=== PATIENT | male | born 2000 | race Caucasian/White ===

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

== ENCOUNTER 2018-11-03 06:57 | Day surgery (SDC) | payer OTHER, SELFPAY ==
[2018-11-03 07:16] VITALS: BP 134/77; PULSE 95; RESP 18; TEMP 36.9; O2SAT 95; BMI 18.3
--- NOTE | 2018-11-03 08:35 | SEP_PTH ---
PATIENT: GENOVEVA YBARRA LOC[place] [facility] [place][id number] AGE/SX: 18/M ROOM: RE11/03/[address]: Per Frias MD : 2000 BED: DIS: 11/03/2018 SPEC #: [id number] RECD: 11/03/18 12:56 STATUS: ANGEL DELGADO #: [id number] FERNANDO: 11/03/18 08:[address]: Per Frias DEPT: SURGICAL PATHOLOGY RECD BY: Sarthak Whitley ENTERED: 11/03/18 13:43 SP TYPE: SEPTUM OTHR DR: Dr. Eric Kurtz MD Tissues: A - Nasal septum, NOS B - Adenoid, NOS Procedures: Decalcification bone/plaque Surgery Specimen Level III HEADER OPERATION: Septoplasty, turbinate cautery, adenoidectomy PRE-OP DIAGNOSIS: Nasal congestion; deflection or deviation of nasal septum, hypertrophy of nasal turbinates TISSUE SUBMITTED: A - Nasal septal bone and cartilage, B - Adenoids MICROSCOPIC DIAGNOSIS A. Nasal septum bone and cartilage: Fragments of cartilage and bone, clinically deviation of nasal septum. B. Adenoids: Reactive lymphoid hyperplasia. KIRSTY:joe 11/09/18 MICROSCOPIC DESCRIPTION Slides are reviewed. GROSS DESCRIPTION A - Received in fixative is one container labeled with the patient's name and designated nasal septal bone cartilage. The specimen consists of multiple fragments of cartilage and bone that in aggregate measure 3 x 2.5 x 0.4 cm. The entire specimen is submitted in one cassette after decalcification. B - Received is one container labeled with the patient's name and designated adenoids. The specimen consists of multiple irregular fragments of pink-sy, smooth, glistening and somewhat lobulated soft tissue that in aggregate weigh 1.9 gm and measure 3 x 2.5 x 0.3 cm. The entire specimen is submitted in one cassette. / KIRSTY:joe 11/03/18 TC: 5 CPT: 99353 x2, [id number]
[2018-11-03] MEDS: Mixture 30 ML Bottle TOPICAL (08:48)
[2018-11-03] MEDS: Oxymetazoline 0.05% 1 SPRAY SPRAY.BTL 15 SPRAY ×2 (08:58→09:45)
[2018-11-03] MEDS: Neomycin/Bacitracin/Polymyxin Ointment 1 APPLIC (09:55)
--- NOTE | 2018-11-03 10:07 | DCINST_ITS ---
You will use the following diet at home:: No restrictions Discharge Activity: Return to Normal Activity - head of bed elevation. Rinse no se with saline to sniff and clear at least 3 times daily. May use Afrin spray to reduce congestion or any oozing. Do not blow nose Allergies/Adverse Reactions: Allergies No Known Allergies Allergy (Verified 10/31/18 14:37) Medications to take at Discharge NK 10/31/18 Primary Care Physician: Eric Kurtz MD [Primary Care Provider] - Test Results: Test results from this visit will be discussed in further detail at your follow- up appointment, if applicable. Please Follow Up With: Per Frias MD - follow up next WednesdayNovember 12
[2018-11-03 10:21] VITALS: BP 120/54; BP 134/77; PULSE 81; RESP 16; TEMP 36.8; O2SAT 98
[2018-11-03 10:30] VITALS: BP 101/56; BP 134/77; PULSE 75; RESP 16; O2SAT 97
[2018-11-03 10:45] VITALS: BP 134/77; BP 136/73; PULSE 74; RESP 18; O2SAT 100
[2018-11-03 11:05] VITALS: BP 119/63; BP 134/77; PULSE 67; RESP 16; TEMP 36.7; O2SAT 99
[2018-11-03 12:03] VITALS: BP 121/63; BP 134/77; PULSE 64; RESP 16; TEMP 37.1; O2SAT 99
--- NOTE | 2018-11-03 12:19 | PCM.OPRPT ---
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 Surgery/Procedure Performed:: Nasal septoplasty, therapeutic outfracture and subsequent submucosal cautery of inferior turbinates with Maico bipolar probe, incidental adenoidectomy Type of Anesthesia:: General - Endotracheal Anesthesiologist: Reyes Streeter CRNA Specimen's removed: Nasal septal cartilage and bone fragments, adenoid tissue Estimated Blood Loss (mL): 35 Description of Procedure: The patient was transported to the operating room and placed on the OR table in the supine position. After the administration of adequate general endotracheal anesthesia the patient was appropriately positioned, eyes were treated and taped closed. A head drape was applied. The nasal cavity was inspected. This young fellow has sustained trauma to the nasal cartilage. This resulted in a severe fracture of the quadrangular cartilage so as to produce a convexity at the left nasal valve resulting in total nasal obstruction on that side. The caudal end of the quadrangular cartilage extruded out the right nostril inferiorly. Turbinate tissues were somewhat hypertrophic in particular on the right side. Afrin was sprayed into the nasal chamber and vasoconstriction of tissues did take place. Cottonoid pledgets soaked in Patrick-Synephrine and Xylocaine were then used to bring about further vasoconstriction and subsequently removed. The nose was reinspected and the impression was much the same with the additional finding of a large bony septal spur posteriorly on the left side. Thus the left nasal airway was obstructed at 2 locations. 1% Xylocaine with epinephrine 1-100,000 was used to infiltrate the columellar area of the septum as well as the soft tissues overlying the quadrangular cartilage anteriorly on each side and also injection was made posteriorly along the bony septal spur. Additional time was allowed to elapse for vasoconstriction. Thereafter procedure to deal with the septal deflection commenced. A right hemitransfixion incision was created with #15 scalpel and the soft tissues were elevated in the subperichondrial plane along the left side of the septum. This elevated all right up to the convexity of the septal fracture and the tunnel was carried posteriorly to eventually elevate in the subperiosteal plane along the perpendicular plate of the ethmoid. This helped to skeletonize the spur posteriorly on the left. Just anterior to the chondro-osseous junction of the septum, the freer elevator was used to make an incision so that a posterior tunnel could be elevated on the right. This skeletonized the posterior aspect of the septum, With double-action scissors and forceps the fragments of septal bone and cartilage were removed. This removed the large spur posteriorly. Although a tear did not occur along the convexity of the spur an intentional cut was made to allow egress of any fluids. Moving back anteriorly the quadrangular cartilage was freed from the maxillary crest inferiorly and excess cartilage that had grown past that point was excised. However in general the entire quadrangular cartilage was preserved and the area where there had been fracture line producing the convexity an incision was created to allow straightening of this pleated segment. Having accomplished this, the airway was greatly improved on the left side and was almost completely symmetric side to side. The inferior turbinates were then laterally outfractured into the inferior meatus and subsequently treated with the Maico bipolar probe. 0 degree endoscope was used to apply cautery to the posterior tips of the inferior turbinates. It was during that posterior examination that it was evident that he had adenoidal tissue seemingly prominent right at the posterior nasal choana. Thus a Som-Sharmin mouthgag was then inserted and extended so that a nasopharyngeal exam could be undertaken. It was evident that there was in fact residual adenoidal tissue superiorly and it was felt best to consider simple removal with a curette. This was accomplished uneventfully. Packing was placed into this area and adequate time allowed to elapse for hemostasis. During that time the nasal septum was secured in the midline as the hemitransfixion incision was closed with 4-0 chromic. Hall airway splints coated in Neosporin ointment were introduced into the nasal cavity and secured anteriorly with a single suture of 3-0 Ethilon. The packing was subsequently removed from the nasopharynx and when no bleeding was evident the Som-Sharmin mouthgag was relaxed, withdrawn, and the procedure terminated. The patient tolerated the procedure well, did not sustain any intraoperative anesthetic or surgical complication, was extubated in the operating room and taken to the PACU where he was noted to be in satisfactory condition. Per Frias MD
== END 2018-11-03 12:05 | disposition home or self-care (01) ==
LOC: SDC 07:03 → AC 07:04
PROVIDERS: Family Provider Family Medicine; PCP Family Medicine; Referring Provider Otolaryngology Otolaryngology/Facial Plastic Surgery; Visit Provider Otolaryngology Otolaryngology/Facial Plastic Surgery
PROC: (CPT 30520; principal; 2018-11-03 08:25)
DX: J34.2 Deviated nasal septum (principal); J35.2 Hypertrophy of adenoids; J34.3 Hypertrophy of nasal turbinates; K58.9 Irritable bowel syndrome, unspecified; M41.9 Scoliosis, unspecified
CPT/HCPCS: 00160; 30520; 30802; 42831; 88304; 88311; J7120; J2405

== ENCOUNTER → 2020-09-20 14:58 | Outpatient (CLI) | payer OTHER, SELFPAY | PROVIDERS: PCP Family Medicine; Visit Provider Urology | DX: Z03.818 Encounter for observation for suspected exposure to other biological agents ruled out (principal) | CPT/HCPCS: 87635; C9803; U0005; U0003 ==

== ENCOUNTER → 2021-01-27 10:53 | Outpatient (CLI) | payer OTHER, SELFPAY ==
--- NOTE | 2021-01-27 11:00 | RAD_ITS ---
INDICATION: PAIN EXAMINATION/TECHNIQUE: X-RAY - LEFT XR Knee 3 Views 3 VIEWS COMPARISON: None. FINDINGS: SOFT TISSUES: No soft tissue swelling or gas. No radiopaque foreign body. BONES/JOINTS: Mild to moderate narrowing of the medial joint space is seen. No acute fracture or subluxation.. Preservation of the joint space.. No sclerotic or destructive changes observed. The ratio of the patellar tendon to the patella bone is 1.38, would recommend clinical correlation for patella perla. RAD/Knee 3 Views IMPRESSION: No evidence of acute osseous abnormality is seen. The ratio of the patellar tendon to the patella bone is 1.38, would recommend clinical correlation for patella perla. Electronically Signed: Thad Kirkland MD at 15:13 EDT Tel , Service support ,
== END ==
PROVIDERS: PCP Family Medicine; Referring Provider Family Medicine; Visit Provider Family Medicine
DX: M25.562 Pain in left knee (principal)
CPT/HCPCS: 73562